=== PATIENT | female | born 1945 | race African-American/Black ===

== ENCOUNTER → 2020-04-16 11:10 | Outpatient (CLI) | payer OTHER, SELFPAY ==
--- NOTE | ~2020-04-16 | MM_ITS ---
EXAMINATION: MM screening [facility] BI w josh HISTORY: Screening mammogram, family history of breast cancer in her daughter. TECHNIQUE: Craniocaudal and mediolateral oblique 3-D tomosynthesis images were obtained and synthetic 2-D images were generated. CAD analysis was submitted and interpreted. COMPARISON: 04/04/2019, 03/01/2018, 01/02/2017 BREAST PARENCHYMAL COMPOSITION: The breasts are almost entirely fatty. FINDINGS: Scattered benign-appearing calcifications are present. There is no evidence of suspicious m ass, calcification, or architectural distortion to suggest malignancy in either breast. There has bee n no suspicious interval change. IMPRESSION: 1. No mammographic evidence of malignancy. 2. Recommend routine screening mammography in one year. BI-RADS Category 2: Benign finding(s). Reviewed, dictated and finalized at location A. AGING COORDINATOR
== END ==
PROVIDERS: PCP Emergency Medicine; Visit Provider Emergency Medicine
DX: Z12.31 Encounter for screening mammogram for malignant neoplasm of breast (principal)
CPT/HCPCS: 77063; 77067

== ENCOUNTER 2020-12-30 17:01 | Emergency (ER) | payer MEDICARE, SELFPAY ==
--- NOTE | ~2020-12-30 | XR_ITS ---
EXAMINATION: XR abdomen/kub 1V DATE: 12/30/2020 18:42 INDICATION: Left flank pain. Left ureteral stone. TECHNIQUE: A supine view of the abdomen on 2 radiographs was obtained. COMPARISON: CT abdomen and pelvis 12/30/2020 FINDINGS: There are no dilated loops of bowel. There are 4 stones in left kidney measuring up to 5 mm . IMPRESSION: 1. Left kidney stones. Left ureteral stone not visible. Reviewed, dictated and finalized at location A.
--- NOTE | ~2020-12-30 | CT_ITS ---
EXAMINATION: CT abdomen wo con DATE: 12/30/2020 18:01 INDICATION: Left flank pain. TECHNIQUE: Computed tomography (CT) of the abdomen and pelvis was performed without intravenous contr ast. Automated exposure control and iterative reconstruction technique were employed. The dose-length product was 483.44 mGy-cm. COMPARISON: CT abdomen and pelvis 04/17/2014 FINDINGS: The visualized portions of the lung bases demonstrate mild atelectasis. No pleural effusion . The heart size is normal. No pericardial effusion. There is ectasia of ascending aorta measuring up to 4.1 cm in its visualized portion. The liver, gallbladder, spleen, pancreas, and adrenal glands ar e normal. There is a 7 mm cyst in right kidney. There are cysts in left kidney measuring up to 5.2 cm . There are 3 stones in left kidney measuring up to 5 mm. There is mild left hydronephrosis. There is a 4 mm stone in proximal left ureter. There are bilateral inguinal hernias containing fat. There are no dilated loops of bowel. The appendix is normal. There are no pathologically enlarged lymph nodes. There is no free intraperitoneal fluid. There are periumbilical and infraumbilical ventral hernias c ontaining fat. There is mild lumbar spondylosis. IMPRESSION: 1. 4 mm stone in proximal left ureter with mild left hydronephrosis. 2. Nonobstructing left kidney stones. 3. Ventral hernias and bilateral inguinal hernias containing fat. Reviewed, dictated and finalized at location A.
[2020-12-30 17:10] VITALS: BP 146/70; PULSE 101; RESP 18; TEMP 37.6; O2SAT 98
[2020-12-30 17:55] VITALS: BP 144/89; PULSE 106; RESP 16; O2SAT 99
[2020-12-30 17:59] LABS: Basophils Percent Auto 0.4 % (0.2-1.2); Hematocrit 36.4 % (37.0-47.0); Hemoglobin 11.6 g/dL (12.0-15.0); Immature Granulocyte Absolute 0.02 K/mm3 (0.00-0.031); Immature Granulocyte Percent A 0.4 % (0-0.5); Lymphocytes Absolute Auto 0.26 K/mm3 (0.9-3.2); Lymphocytes Percent Auto 5.6 % (18.3-44.2); Mean Corpuscular HGB Conc 31.9 g/dl (32-36); Mean Corpuscular Hemoglobin 29.5 pg (26-34); Mean Corpuscular Volume 92.6 fl (80-100); Mean Platelet Volume 12.4 fl (7.4-10.4); Monocytes Percent Auto 0.6 % (2.6-8.5); Neutrophils Absolute Auto 4.3 K/mm3 (1.3-6.7); Platelet Count Result 137 k/mm3 (150-375); Red Blood Count 3.93 M/mm3 (4.2-5.4); Red Cell Distribution Width 13.8 % (11.5-14.5); White Blood Count 4.7 K/mm3 (4.5-10.0)
--- NOTE | 2020-12-30 18:00 | PC.NURSE ---
UA sent to lab, lab called and made aware
[2020-12-30 18:06] LABS: Add Urine Microscopic? YES; Appearance Urine Clear (Clear); Bacteria Urine Trace /hpf; Bilirubin Urine Negative (Negative); Blood Urine Negative (Negative); Color Urine Yellow (Yellow); Glucose Urine UA Negative (Negative); Ketones Urine Negative (Negative); Leukocyte Esterase Ur 1+ LEU/UL (Negative); Mucus Urine Rare /lpf; Nitrate Urine Negative (Negative); Protein Urine Negative (Negative); Specific Grav Ur 1.014 (1.001-1.035); Squamous Epithelial Cell Urine Rare /hpf (Few); Urobilinogen Urine Negative mg/dL (<2.0); WBC Urine 31-50 /hpf
--- NOTE | 2020-12-30 18:06 | ED.ABDPAIN ---
HPI - Abdominal Pain General Chief Complaint: Abdominal Pain Stated Complaint: abd pain Time Seen by Provider: 12/30/20 17:30 Related Data Home Medications Medication Instructions Recorded Confirmed cholecalciferol (vitamin D3) 12/30/20 Allergies Allergy/AdvReac Type Severity Reaction Status Date / Time codeine Allergy Severe inching, Verified 12/30/20 18:03 rash penicillin V Allergy Severe Rash Verified 12/30/20 18:46 acetaminophen [From Tylenol] Allergy NAUSEA, Verified 12/30/20 18:03 DIZZY PMFSH Past Medical History Medical History Vitamin D deficiency disease Family History Family History Father Hypertension Family history of Alzheimer's disease, Onset Age: 83 Mother Family history of kidney disease Other Diabetes mellitus Family history of dementia Social History Social History Smoking status: Never smoker Second hand tobacco smoke exposure: No Alcohol intake: never Course Consultations Consultation #1: Pending urology consult concern for infected urine. Date: 12/30/20 Time: 19:01 Vital Signs Vital signs: Vital Signs Temperature 37.6 C 12/30/20 17:10 Pulse Rate 101 H 12/30/20 17:10 Respiratory Rate 18 12/30/20 17:10 Blood Pressure 146/70 H 12/30/20 17:10 Pulse Oximetry 98 12/30/20 17:10 Temperature 37.6 C 12/30/20 17:10 Pulse Rate 106 H 12/30/20 17:55 Respiratory Rate 16 12/30/20 17:55 Blood Pressure 144/89 H 12/30/20 17:55 Pulse Oximetry 99 12/30/20 17:55 MDM - Abdominal Pain Lab Data Result diagrams: 12/30/20 17:46 12/30/20 17:47 Labs: Lab Results 12/30/20 12/30/20 12/30/20 Range/Units 17:46 17:46 17:47 WBC 4.7 (4.5-10.0) K/mm3 RBC 3.93 L (4.2-5.4) M/mm3 Hgb 11.6 L (12.0-15.0) g/dL Hct 36.4 L (37.0-47.0) % MCV 92.6 (80-100) fl MCH 29.5 (26-34) pg MCHC 31.9 L (32-36) g/dl RDW 13.8 (11.5-14.5) % Plt Count 137 L (150-375) k/mm3 MPV 12.4 H (7.4-10.4) fl Immature Gran % (Auto) 0.4 (0-0.5) % Neut % (Auto) 93.0 H (45.5-73.1) % Lymph % (Auto) 5.6 L (18.3-44.2) % [place] % (Auto) 0.6 L (2.6-8.5) % Eos % (Auto) 0.0 (0-4.4) % Baso % (Auto) 0.4 (0.2-1.2) % Lymph # (Auto) 0.26 L (0.9-3.2) K/mm3 [place] # (Auto) 0.0 L (0.1-0.6) K/mm3 Eos # (Auto) 0.0 (0-0.3) K/mm3 Baso # (Auto) 0.0 (0.0-0.1) K/mm3 Abs Immat Gran (auto) 0.02 (0.00-0.031) K/mm3 Absolute Neuts (auto) 4.3 (1.3-6.7) K/mm3 Absolute Nucleated RBC 0.0 (0.0-0.012) K/mm3 Nucleated RBC % 0.0 (0.0-0.2) % Platelet Estimate Slightly decreased (Adequate) Ovalocytes 1+ (NORMAL) Sodium 140 (137-145) mmol/L Potassium 3.8 (3.4-5.0) mmol/L Chloride 107 (98-107) mmol/L Carbon Dioxide 20 L (22-30) mmol/L Anion Gap 13 (8-16) mmol/L BUN 27 H (7-17) mg/dL Creatinine 1.10 H (0.7-1.0) mg/dL Estim Creat Clear Calc Not Reportable Estimated GFR 59 (59 - ) Glucose 113 H (65-110) mg/dL Calcium 10.7 H (8.4-10.2) mg/dL Total Bilirubin 0.9 (0.2-1.3) mg/dL AST 45 H (14-36) U/L ALT 32 (4-35) U/L Alkaline Phosphatase 103 (38-126) U/L Total Protein 8.0 (6.3-8.2) g/dL Albumin 4.2 (3.5-5.1) g/dL Lipase 115 (23-300) U/L Urine Color Yellow (Yellow) Urine Appearance Clear (Clear) Urine pH 6.0 (5.0-9.0) Ur Specific [place] 1.014 (1.001-1.035) Urine Protein Negative (Negative) mg/dL Urine Glucose (UA) Negative (Negative) mg/dL Urine Ketones Negative (Negative) mg/dL Ur Blood (Man) Negative (Negative) Urine Nitrate Negative (Negative) Urine Bilirubin Negative (Negative) Urine Urobilinogen Negative (<2.0) mg/dL Leukocyte Esterase Rfl 1+ H
[2020-12-30 18:09] LABS: Albumin Level 4.2 g/dL (3.5-5.1); Alkaline Phosphatase 103 U/L (38-126); Anion Gap 13 mmol/L (8-16); Aspartate Amino Transferase 45 U/L (14-36); Bilirubin,Total 0.9 mg/dL (0.2-1.3); Blood Urea Nitrogen 27 mg/dL (7-17); Calcium 10.7 mg/dL (8.4-10.2); Carbon Dioxide 20 mmol/L (22-30); Chloride 107 mmol/L (98-107); Estimated Glomerular Filt Rate 59; Glucose 113 mg/dL (65-110); Lipase 115 U/L (23-300); Potassium 3.8 mmol/L (3.4-5.0); Sodium 140 mmol/L (137-145)
--- NOTE | 2020-12-30 18:12 | ED.ABDPAIN ---
HPI - Abdominal Pain General Chief Complaint: Abdominal Pain Stated Complaint: abd pain Time Seen by Provider: 12/30/20 17:30 History of Present Illness HPI narrative: Patient presents with abdominal pain. Symptoms started today around noon primarily on her left flank. Her pain was getting progressively worse so she came in for evaluation. She reports nausea but no vomiting. She denies any aggravating or alleviating factors. Pain is sharp and achy and constant. She denies any urinary symptoms. She denies any constipation or diarrhea. She denies any fevers, cough, congestion, shortness of breath Related Data Home Medications Medication Instructions Recorded Confirmed cholecalciferol (vitamin D3) 12/30/20 Allergies Allergy/AdvReac Type Severity Reaction Status Date / Time codeine Allergy Severe inching, Verified 12/30/20 18:03 rash penicillin V Allergy Severe Rash Verified 12/30/20 18:46 acetaminophen [From Tylenol] Allergy NAUSEA, Verified 12/30/20 18:03 DIZZY Review of Systems Review of Systems: CONSTITUTIONAL: Denies fever, chills, or sweats. EYES: Denies visual changes, redness, or discharge. ENT: Denies rhinorrhea, congestion, sore throat, or otalgia. CARDIOVASCULAR: Denies chest pain, palpitations, or edema. RESPIRATORY: Denies cough or dyspnea. GASTROINTESTINAL: Denies abdominal pain, nausea, vomiting, or diarrhea. GENITOURINARY: Denies dysuria or hematuria. SKIN: Denies rash or itching. MUSCULOSKELETAL: Denies back pain, joint pain, or myalgia. NEUROLOGIC: Denies headache, numbness, dizziness, or weakness. PSYCHIATRIC: Denies anxiety or depression. All systems reviewed & are unremarkable except as noted in HPI and below PMFSH Past Medical History Medical History (Updated 12/30/20 @ 19:45 by Nato Sexton MD) Vitamin D deficiency disease Family History Family History Father Hypertension Family history of Alzheimer's disease, Onset Age: 83 Mother Family history of kidney disease Other Diabetes mellitus Family history of dementia Social History Social History Smoking status: Never smoker Second hand tobacco smoke exposure: No Alcohol intake: never Exam Narrative: GENERAL: Well-appearing, well-nourished, and in no acute distress. HEAD: Normocephalic, atraumatic. EYES: PERRLA and EOMI. ENT: Nares clear, no rhinorrhea or epistaxis. Mucous membranes moist. NECK: Supple. No masses. No JVD ABDOMEN: Unable to reproduce pain with palpation soft, nondistended, normal active bowel sounds. EXTREMITIES: Normal range of motion. No edema. SKIN: Warm, dry, no rash. NEURO: No focal deficits. Alert and oriented x3. PSYCH: Normal mood and affect. Course Consultations Consultation #1: discussed case with Dalia. who will follow up with the patient as an outpatient Date: 12/30/20 Time: 19:37 Vital Signs Vital signs: Vital Signs Temperature 37.6 C 12/30/20 17:10 Pulse Rate 101 H 12/30/20 17:10 Respiratory Rate 18 12/30/20 17:10 Blood Pressure 146/70 H 12/30/20 17:10 Pulse Oximetry 98 12/30/20 17:10 Temperature 37.6 C 12/30/20 17:10 Pulse Rate 88 12/30/20 20:54 Respiratory Rate 16 12/30/20 20:54 Blood Pressure 104/61 12/30/20 20:54 Pulse Oximetry 96 12/30/20 20:54 MDM - Abdominal Pain MDM Narrative Medical decision making narrative: H&P as above, vss, pt looks clinically well, exam without reproducible symptoms, labs with large WBCs in urine, img notable for stone, additional labs/img considered, symptomatic relief available as needed, on reevaluation pt continues to looks clinically well with better symptom control. Suspect ureteral stone given WBCs in UA will empirically treat with antibiotics until cultures are pending. Patient follow-up with urology as an outpatient. There is a low clinical suspicion for urinary tract i
[2020-12-30 18:20] LABS: Alanine Aminotransferase 32 U/L (4-35)
[2020-12-30 18:21] LABS: Ovalocytes 1+ (NORMAL)
[2020-12-30] MEDS: fentaNYL CITRATE INJ (*CRX) 100 MCG/2 ML VIAL 50 MCG IV PUSH (19:06)
--- NOTE | 2020-12-30 19:17 | PC.NURSE ---
report to mitchel alston
[2020-12-30 19:41] VITALS: BP 91/91; PULSE 96; RESP 16; O2SAT 97
[2020-12-30] MEDS: SODIUM CHLORIDE 0.9% IV 1,000 ML 999 ML IV CONT (19:43)
[2020-12-30 20:54] VITALS: BP 104/61; PULSE 88; RESP 16; O2SAT 96
== END 2020-12-30 20:57 | disposition home or self-care (01) ==
PROVIDERS: Family Medicine; Emergency Provider Emergency Medicine; PCP Internal Medicine
DX: N13.2 Hydronephrosis with renal and ureteral calculous obstruction (principal); E55.9 Vitamin D deficiency, unspecified; K43.9 Ventral hernia without obstruction or gangrene; K40.20 Bilateral inguinal hernia, without obstruction or gangrene, not specified as recurrent
CPT/HCPCS: 11720; 36415; 74018; 74150; 80053; 81001; 83690; 85025; 87077; 87086; 87088; 87186; 96361; 96374; 99284; J3010; J7030

== ENCOUNTER 2021-01-27 13:12 | Outpatient (CLI) | payer MEDICARE, SELFPAY ==
--- NOTE | 2021-01-27 13:47 | ECHO_ITS ---
Patient Info Name: Awilda Panchal Age: 75 years : 1945 Gender: Female Ht: 63 in Wt: 200 lbs BSA: 2.05 m2 HR: 56 bpm BP: 148 / 76 mmHg Technical Quality: Good Exam Date: 01/27/2021 1:59 PM Exam Location: [facility] Patient Status: Outpatient Admit Date: 01/27/2021 Staff Ordering Physician: Harry Cleary DO Agri Business Agent: Lisa Gomez RDCS Attending Provider: Harry Cleary DO Referring Physician: Evin VEGA; Exam Type: CA echo doppler color flow Study Info Indications I50.20 - Unspecified systolic (congestive) heart failure Complete two-dimensional, color flow and Doppler transthoracic echocardiogram is performed. Summary 1. Complete two-dimensional, color flow and Doppler transthoracic echocardiogram is performed. 2. Left ventricular chamber dimension is normal. 3. Left ventricular systolic function is normal, estimated at 60-65%. 4. There is mildly increased left ventricular wall thickness. 5. The left ventricular diastolic function is grade I diastolic dysfunction. 6. E/e' 11 is mildly elevated. 7. Left atrial chamber dimension is mildly enlarged. 8. There is mild aortic valve sclerosis. 9. There is trace aortic valve regurgitation. 10. No pulmonary hypertension, estimated pulmonary arterial systolic pressure is 27 mmHg. 11. There is trace pulmonic regurgitation. Left Ventricle E/e' 11 is mildly elevated. Left ventricular chamber dimension is normal. Left ventricular systolic function is normal, estimated at 60-65%. There is mildly increased left ventricular wall thickness. The left ventricular diastolic function is grade I diastolic dysfunction. Right Ventricle Right ventricular chamber dimension is normal. Right ventricular systolic function is normal. Left Atria Left atrial chamber dimension is mildly enlarged. Right Atria Right atrial chamber dimension is normal. Aortic Valve The aortic valve is trileaflet. There is mild aortic valve sclerosis. There is no aortic valve stenosis. There is trace aortic valve regurgitation. Pulmonic Valve There is trace pulmonic regurgitation. Mitral Valve There is no mitral valve stenosis. There is no mitral valve regurgitation. Tricuspid Valve There is no tricuspid valve regurgitation. No pulmonary hypertension, estimated pulmonary arterial systolic pressure is 27 mmHg. Pericardium/Pleural There is no pericardial effusion. Inferior Vena Cava Normal inferior vena cava with >50% collapse upon inspiration consistent with normal right atrial pressure, 5 mmHg. Aorta The aortic root size at the sinus of Valsalva is normal. Left Ventricular Outflow Tract Name Value Normal LVOT 2D LVOT Diameter 2.1 cm LVOT Doppler LVOT Peak Gradient 5 mmHg LVOT Mean Gradient 3 mmHg LVOT VTI 23 cm LVOT VTI/AV VTI Ratio 0.8 LVOT Stroke Volume 76 ml LVOT CO 16.9 l/min LVOT CI 8.2 l/min/m2 Pulmonic Valve
== END 2021-01-27 13:13 | disposition home or self-care (01) ==
LOC: ANHCARD 13:14
PROVIDERS: PCP Internal Medicine; Visit Provider Internal Medicine
DX: I50.20 Unspecified systolic (congestive) heart failure (principal); I35.8 Other nonrheumatic aortic valve disorders
CPT/HCPCS: 93306

== ENCOUNTER 2021-03-19 11:35 | Outpatient (CLI) | payer MEDICARE, SELFPAY ==
--- NOTE | ~2021-03-19 | XR_ITS ---
EXAMINATION: XR chest 2V DATE: 03/19/2021 12:00 INDICATION: Cough. TECHNIQUE: Frontal and lateral views of the chest were obtained. COMPARISON: CT abdomen 12/30/2020 FINDINGS: The chest demonstrates clear lungs without pneumonia, pleural effusion, or pneumothorax. Th e heart size is normal. IMPRESSION: 1. No acute cardiopulmonary disease. Reviewed, dictated and finalized at location A.
== END 2021-03-19 11:36 | disposition home or self-care (01) ==
PROVIDERS: PCP Internal Medicine; Visit Provider Internal Medicine
DX: R05.9 Cough, unspecified (principal)
CPT/HCPCS: 71046

== ENCOUNTER 2021-04-22 18:34 | Emergency (ER) | payer MEDICARE, SELFPAY ==
[2021-04-22 18:37] VITALS: BP 187/95; PULSE 87; RESP 20; TEMP 36.4; O2SAT 100
--- NOTE | 2021-04-22 20:08 | PC.NURSE ---
Pt walking out at this time prior to seeing provider. Pt does not appear to be in any kind of distress, no IV.
== END 2021-04-22 20:31 | disposition left against medical advice (07) ==
PROVIDERS: PCP Internal Medicine
DX: S61.205A Unspecified open wound of left ring finger without damage to nail, initial encounter (principal)
CPT/HCPCS: 99199

== ENCOUNTER → 2021-05-21 10:36 | Outpatient (CLI) | payer MEDICARE, SELFPAY ==
--- NOTE | ~2021-05-21 | MM_ITS ---
EXAMINATION: MM screening [facility] BI w josh HISTORY: Screening TECHNIQUE: Craniocaudal and mediolateral oblique 3-D tomosynthesis images were obtained and synthetic 2-D images were generated. CAD analysis was submitted and interpreted. COMPARISON: Comparison to multiple prior studies sequentially, with oldest reviewed study dated 08/2017. BREAST PARENCHYMAL COMPOSITION: Breast composed of scattered areas of fibroglandular density. FINDINGS: There is no evidence of suspicious mass, calcification, or architectural distortion to sugg est malignancy in either breast. There has been no suspicious interval change. IMPRESSION: 1. No mammographic evidence of malignancy. 2. Recommend routine screening mammography in one year. BI-RADS Category 2: Benign finding(s). Reviewed, dictated and finalized at location A. RONMENTAL RESOURCE SPECIALIST
== END ==
PROVIDERS: PCP Internal Medicine; Visit Provider Internal Medicine
DX: Z12.31 Encounter for screening mammogram for malignant neoplasm of breast (principal)
CPT/HCPCS: 77063; 77067

== ENCOUNTER 2021-08-18 08:45 | Outpatient (CLI) | payer MEDICARE, SELFPAY ==
--- NOTE | ~2021-08-18 | DEXA_ITS ---
Bone Density Report Name: ROSCOE ANTONY Age: 75 Sex: Female Ethnicity: Black Date of : 1945 Indication: postmenopausal; height loss; hysterectomy; Referring Provider: Nelly Burciaga Study: Bone densitometry was performed. Exam Date: August 18, 2021 Accession number: [id number] Bone Density: Region BMD T-score Z-score Classification AP Spine (L1-L4) 1.023 -0.2 1.6 Normal Femoral Neck (Left) 0.696 -1.4 -0.2 Osteopenia Total Hip (Left) 0.915 -0.2 0.6 Normal Total Hip Bilateral Avg 0.888 -0.4 0.5 Normal Femoral Neck (Right) 0.782 -0.6 0.4 Normal Total Hip (Right) 0.860 -0.7 0.3 Normal World Health Organization criteria for BMD impression classify patients as: Normal (T-score at or above -1.0), Osteopenia (T-score between -1.0 and -2.5), or Osteoporosis (T-score at or below -2.5). 10-year Fracture Risk(1): Major Osteoporotic Fracture 4.7% Hip Fracture 0.8% Reported Risk Factors: [place] ([place]), Neck BMD=0.696, BMI=34.9 (1) FRAX(R) Version 3.08. Fracture probability calculated for an untreated patient. Fracture probability may be lower if the patient has received treatment. Clinical Information Provided by Patient: Has used the following medications: Vitamin D Has the following medical conditions: Hysterectomy Patient maximum height was 63 Menopause Age: 49 No regular weight bearing exercise Onset of menses at age 10 Number of children 7 Impression: The patient has low bone mass, based on the Left Femoral Neck T-score. The patient has an estimated ten-year risk of hip fracture of 0.8% and an estimated ten-year risk of major fracture of 4.7%, based on the WHO FRAX algorithm. Discussion: BONE DENSITY IS LOW AT ONE OR MORE SKELETAL SITES. This patient's lowest T-score is low at one or more skeletal sites. It meets the World Health Organization's (WHO) criteria for ?low bone mass? (T-score between -1.0 and -2.5). The patient's 10-year risk of fracture as calculated by FRAX is less than the threshold where pharmacological therapy is recommended by the National Osteoporosis Foundation (NOF). However, all treatment decisions require clinical judgment and consideration of individual patient factors, including patient preferences, comorbidities, previous drug use, risk factors not captured in the FRAX model (e.g., frailty, falls, vitamin D deficiency, increased bone turnover, interval significant decline in bone density) and possible under or overestimation of fracture risk by FRAX. The patient should follow a healthful lifestyle (good nutrition with adequate calcium and vitamin D, and appropriate weight-bearing exercise). Follow-Up: Consider repeating this study in 2 to 3 years to reassess this patient's status, or sooner if there is some new clinical indication. Reported by: ROMULO on 08/18/2021 9:11
== END 2021-08-18 08:46 | disposition home or self-care (01) ==
PROVIDERS: PCP Internal Medicine; Visit Provider Nurse Practitioner
DX: Z78.0 Asymptomatic menopausal state (principal); M85.852 Other specified disorders of bone density and structure, left thigh
CPT/HCPCS: 77080

== ENCOUNTER → 2022-06-01 11:54 | Outpatient (CLI) | payer MEDICARE, SELFPAY ==
--- NOTE | ~2022-06-01 | MM_ITS ---
EXAMINATION: MM screening [facility] BI w josh HISTORY: Screening mammogram, family history of breast cancer in her daughter. TECHNIQUE: Craniocaudal and mediolateral oblique 3-D tomosynthesis images were obtained and synthetic 2-D images were generated. CAD analysis was submitted and interpreted. COMPARISON: 05/21/2021, 04/16/2020, 04/04/2019 BREAST PARENCHYMAL COMPOSITION: The breasts are almost entirely fatty. FINDINGS: Scattered benign-appearing calcifications are present. No suspicious mass, calcification, o r architectural distortion are identified in either breast to suggest malignancy. There has been no s uspicious interval change. IMPRESSION: 1. No mammographic evidence of malignancy. 2. Recommend routine screening mammography in one year. BI-RADS Category 2: Benign finding(s). Reviewed, dictated and finalized at location A. ER MATCHER
== END ==
PROVIDERS: PCP Nurse Practitioner; Visit Provider Nurse Practitioner
DX: Z12.31 Encounter for screening mammogram for malignant neoplasm of breast (principal)
CPT/HCPCS: 77063; 77067

== ENCOUNTER → 2023-06-16 09:36 | Outpatient (CLI) | payer MEDICARE, SELFPAY ==
--- NOTE | ~2023-06-16 | MM_ITS ---
EXAMINATION: MM screening [facility] BI w josh HISTORY: Screening TECHNIQUE: Craniocaudal and mediolateral oblique 3-D tomosynthesis images were obtained and synthetic 2-D images were generated. CAD analysis was submitted and interpreted. COMPARISON: Comparison to multiple prior studies sequentially, with oldest reviewed study dated 08/2017. BREAST PARENCHYMAL COMPOSITION: There are scattered areas of fibroglandular density. FINDINGS: There is no evidence of suspicious mass, calcification, or architectural distortion to sugg est malignancy in either breast. There has been no suspicious interval change. IMPRESSION: 1. No mammographic evidence of malignancy. 2. Recommend routine screening mammography in one year. BI-RADS Category 1: Negative Reviewed, dictated and finalized at location A. GER RESPIRATORY
== END ==
PROVIDERS: PCP Nurse Practitioner Family; Visit Provider Nurse Practitioner
DX: Z12.31 Encounter for screening mammogram for malignant neoplasm of breast (principal)
CPT/HCPCS: 77063; 77067

== ENCOUNTER 2024-08-19 11:07 | Outpatient (CLI) | payer MEDICARE, SELFPAY ==
--- NOTE | ~2024-08-19 | MM_ITS ---
EXAMINATION: MM screening rich BI w josh HISTORY: Screening TECHNIQUE: Craniocaudal and mediolateral oblique 3-D tomosynthesis images were obtained and synthetic 2-D images were generated. CAD analysis was submitted and interpreted. COMPARISON: 06/16/2023 and dating back to 04/04/2019 BREAST PARENCHYMAL COMPOSITION: There are scattered areas of fibroglandular density. FINDINGS: Punctate and bulky calcifications are detected bilaterally, stable and benign in appearance . Punctate calcifications detected bilaterally, vascular in origin and benign in appearance. Stable parenchymal pattern without suspicious microcalcifications, architectural distortion, discrete masses or significant asymmetry. IMPRESSION: 1. No mammographic evidence of malignancy. 2. Follow-up as per ACR/ACS guidelines is suggested BI-RADS Category 2: Benign finding(s). Reviewed, dictated and finalized at location A.
== END 2024-08-19 11:08 | disposition home or self-care (01) ==
PROVIDERS: PCP Nurse Practitioner Family; Visit Provider Nurse Practitioner Family
DX: Z12.31 Encounter for screening mammogram for malignant neoplasm of breast (principal)
CPT/HCPCS: 77063; 77067